=== PATIENT | female | born 1940 | race Caucasian/White ===

== ENCOUNTER → 2018-03-17 | Outpatient (CLI) | payer BC ==
[2018-03-17 13:11] LABS: ADD MAN DIFF? NO
[2018-03-17 13:17] LABS: BASO # 0.1 x10^3/uL (0.0-0.2); BASO % 1 % (0-3); EOS # 0.2 x10^3/uL (0.0-0.7); EOS % 3 % (0-3); HEMATOCRIT 35.3 % (36.0-47.0); HEMOGLOBIN 11.7 g/dL (12.0-15.5); LYMPH # 2.8 x10^3/uL (1.0-4.8); LYMPH % 31 % (24-48); MEAN CORPUSCULAR HEMOGLOBIN 30 pg (25-35); MEAN CORPUSCULAR HGB CONC 33 g/dL (31-37); MEAN CORPUSCULAR VOLUME 91 fL (79-100); MONO # 0.8 x10^3/uL (0.0-1.1); MONO % 9 % (0-9); NEUT # 5.2 x10^3uL (1.8-7.7); NEUT % 57 % (31-73); PLATELET COUNT 326 x10^3/uL (140-400); RED BLOOD COUNT 3.87 x10^6/uL (3.50-5.40); RED CELL DISTRIBUTION WIDTH 14.6 % (11.5-14.5); WHITE BLOOD COUNT 9.2 x10^3/uL (4.0-11.0)
[2018-03-17 13:44] LABS: ALBUMIN 3.7 g/dL (3.4-5.0); ANION GAP 9 (6-14); BLOOD UREA NITROGEN 23 mg/dL (7-20); CALCIUM 9.4 mg/dL (8.5-10.1); CARBON DIOXIDE 25 mmol/L (21-32); CHLORIDE 106 mmol/L (98-107); GFR 53.8; GLUCOSE 94 mg/dL (70-99); POTASSIUM 4.4 mmol/L (3.5-5.1); SODIUM 140 mmol/L (136-145)
[2018-03-17 13:46] LABS: PARTIAL THROMBOPLASTIN TIME 25 SEC (24-38); PROTHROMBIN TIME PATIENT 12.5 SEC (11.7-14.0)
[2018-03-17 14:01] LABS: BILIRUBIN,URINE NEGATIVE (NEG); CLARITY,URINE CLEAR; COLOR,URINE YELLOW; GLUCOSE,URINE NEGATIVE (NEG); NITRITE,URINE NEGATIVE (NEG); PROTEIN,URINE NEGATIVE (NEG-TRACE); UROBILINOGEN,URINE 0.2 mg/dL (0.2 mg/dL)
[2018-03-17 14:25] LABS: BACTERIA,URINE 0 /HPF (0-FEW); RBC,URINE 0 /HPF (0-2); SQUAMOUS EPITHELIAL CELL,UR OCC /LPF; WBC,URINE 0 /HPF (0-4)
[2018-03-17 14:51] LABS: SEDIMENTATION RATE 20 (0-25)
[2018-03-17 21:11] LABS: MRSA BY PCR Negative (Negative)
== END | disposition home or self-care (01) ==
LOC: SURGPAT 12:31
DX: I10 Essential (primary) hypertension (principal); R91.8 Other nonspecific abnormal finding of lung field; R94.31 Abnormal electrocardiogram [ECG] [EKG]
CPT/HCPCS: 36415; 71046; 80048; 81001; 82040; 83036; 85025; 85610; 85651; 85730; 87641; 93005

== ENCOUNTER 2018-03-29 05:51 | Inpatient (IN) | payer BC ==
[2018-03-29] MEDS: KETOROLAC 30 MG, ROPIVacaine 0.5% PF 60 ML, EPINEPHrine 0.5 MG in IV NORMAL SALINE 100M... INT ART (06:00)
[2018-03-29] MEDS ORDERED: MIDAZOLAM HCL/PF 2 MG/2 ML VIAL. (06:56)
[2018-03-29] MEDS ORDERED: EPINEPHrine 1 MG/ML VIAL (06:56)
[2018-03-29] MEDS ORDERED: BUPIVACAINE 0.5% 50 ML VIAL. (06:56)
[2018-03-29] MEDS ORDERED: PROCHLORPERAZINE 10 MG/2 ML VIAL. IV (07:00)
[2018-03-29] MEDS ORDERED: fentaNYL PF VIAL 100 MCG/2 ML VIAL IV ×2 (07:00)
[2018-03-29] MEDS ORDERED: LIDOCAINE 1% PF 2 ML VIAL. ID (07:00)
[2018-03-29] MEDS ORDERED: ONDANSETRON PF 4 MG/2 ML VIAL. IV (07:00)
[2018-03-29] MEDS ORDERED: CELECOXIB 100 MG CAPSULE. (07:08)
[2018-03-29] MEDS: ACETAMINOPHEN 500 MG TABLET PO (07:13)
[2018-03-29] MEDS: IV RINGERS,LACTATED 1000ML 1,000 ML IV (07:20)
[2018-03-29] MEDS ORDERED: FAMOTIDINE 20 MG/2 ML VIAL (07:21)
[2018-03-29] MEDS ORDERED: DEXAMETHASONE SOD PHOS 20 MG/5 ML VIAL. (07:21)
[2018-03-29] MEDS ORDERED: LIDOCAINE 2% PF Vial for OR 5 ML VIAL. (07:21)
[2018-03-29] MEDS ORDERED: ROCURONIUM 50 MG/5 ML VIAL. (07:21)
[2018-03-29] MEDS: CELECOXIB 100 MG CAPSULE. PO (07:21)
[2018-03-29] MEDS ORDERED: PROPOFOL 20 ML IV (07:21)
[2018-03-29] MEDS ORDERED: ONDANSETRON PF 4 MG/2 ML VIAL. (07:21)
[2018-03-29] MEDS ORDERED: fentaNYL PF VIAL 100 MCG/2 ML VIAL (07:22)
[2018-03-29 07:29] LABS: POC GLUCOSE 103 mg/dL (70-99)
[2018-03-29] MEDS: TRANEXAMIC ACID 1,000 MG in IV NS 50ML -- 1ST BAG INJ (07:50)
[2018-03-29] MEDS ORDERED: PHENYLEPHRINE in 0.9% NACL PF 1 MG/10 ML SYRINGE. IV (07:53)
[2018-03-29] MEDS ORDERED: GLYCOPYRROLATE 1 MG/5 ML VIAL. (09:10)
[2018-03-29] MEDS: TRANEXAMIC ACID 1,000 MG in IV NS 50ML -- 2ND BAG INJ (09:10)
[2018-03-29] MEDS ORDERED: NEOSTIGMINE METHYLSULFATE 5 MG/5 ML SYRINGE. (09:10)
[2018-03-29] MEDS ORDERED: DESFLURANE > 120 MINUTES IH (09:14)
[2018-03-29 10:01] LABS: POC GLUCOSE 122 mg/dL (70-99)
[2018-03-29] MEDS ORDERED: DEXTROSE 50% 25 GM / 50ML DISP.SYRIN. IV (10:30)
[2018-03-29] MEDS ORDERED: ACETAMINOPHEN 325 MG TABLET. PO (10:30)
[2018-03-29] MEDS ORDERED: CALCIUM CARBONATE 500 MG TAB.CHEW PO (10:30)
[2018-03-29] MEDS ORDERED: 0.9 % SODIUM CHLORIDE 10 ML DISP.SYRIN. IV (10:30)
[2018-03-29] MEDS ORDERED: traMADol 50 MG TABLET PO ×2 (10:30)
[2018-03-29] MEDS ORDERED: oxyCODONE/APAP 5/325 1 TAB TABLET PO (10:30)
[2018-03-29] MEDS ORDERED: ZOLPIDEM 5 MG TABLET. PO (10:30)
[2018-03-29] MEDS ORDERED: HYDROcodone/APAP 10/325 1 TAB TABLET PO (10:30)
[2018-03-29] MEDS ORDERED: oxyCODONE/APAP 7.5/325 1 TAB TABLET PO (10:30)
[2018-03-29] MEDS ORDERED: PROCHLORPERAZINE 5 MG TABLET. PO (10:30)
[2018-03-29] MEDS ORDERED: ceFAZolin SODIUM 1 GM in IV DEXTROSE 5% 50 ML IV (10:30)
[2018-03-29] MEDS: ceFAZolin SODIUM IV Push 1 GM VIAL. IVP ×2 (13:15→19:41)
[2018-03-29 16:51] LABS: POC GLUCOSE 119 mg/dL (70-99)
[2018-03-29] MEDS: FERROUS SULFATE 325 MG TABLET. PO (17:03)
[2018-03-29] MEDS: metFORMIN XR 500 MG TAB.ER.24H PO (17:03)
[2018-03-29] MEDS: CELECOXIB 200 MG CAPSULE. PO (20:27)
[2018-03-29] MEDS: ATORVASTATIN CALCIUM 10 MG TABLET. PO (20:27)
[2018-03-29] MEDS: HYDROcodone/APAP 7.5/325MG 1 TAB TABLET PO (20:29)
[2018-03-29 21:51] LABS: POC GLUCOSE 135 mg/dL (70-99)
[2018-03-30] MEDS: ceFAZolin SODIUM IV Push 1 GM VIAL. IVP (01:49)
[2018-03-30] MEDS: HYDROcodone/APAP 7.5/325MG 1 TAB TABLET PO ×2 (03:13→08:17)
[2018-03-30] MEDS ORDERED: MAGNESIUM HYDROXIDE 2,400 MG/30 ML ORAL.SUSP. PO (06:00)
[2018-03-30] MEDS: PANTOPRAZOLE 40 MG TABLET.DR. PO (06:59)
[2018-03-30] MEDS: LEVOTHYROXINE 100 MCG TABLET PO (06:59)
[2018-03-30 07:31] LABS: POC GLUCOSE 130 mg/dL (70-99)
[2018-03-30] MEDS: metFORMIN XR 500 MG TAB.ER.24H PO (08:16)
[2018-03-30] MEDS: MULTIVITAMIN with MINERAL TABLET. PO (08:16)
[2018-03-30] MEDS: CALCIUM CARB/VIT D3 500/200 TABLET. PO (08:16)
[2018-03-30] MEDS: SENNOSIDES/DOCUSATE 8.6/50MG TABLET. PO (08:16)
[2018-03-30] MEDS: CELECOXIB 200 MG CAPSULE. PO (08:16)
[2018-03-30] MEDS: ASPIRIN ENTERIC COATED 81 MG TABLET.DR. PO (08:16)
[2018-03-30] MEDS: FERROUS SULFATE 325 MG TABLET. PO (08:16)
[2018-03-30] MEDS: hydroCHLOROthiazide 25 MG TABLET PO (09:00)
[2018-03-30] MEDS: METOPROLOL TART IMMED RELEASE 50 MG TABLET. PO (09:00)
[2018-03-30] MEDS: IV DEXTROSE 5 %-0.45 % NACL 1,000 ML IV ×2 (10:54→10:55)
[2018-03-30 11:15] LABS: POC GLUCOSE 130 mg/dL (70-99)
[2018-03-30] MEDS ORDERED: BISACODYL 10 MG SUPP.RECT. PR (16:00)
== END 2018-03-30 12:25 | disposition home or self-care (01) | DRG 483 ==
LOC: OPSVCIP 05:51 → 4 SOUTHEST 11:30
PROVIDERS: Orthopaedic Surgery
PROC: 0RRJ00Z Replacement of Right Shoulder Joint with Reverse Ball and Socket Synthetic Substitute, Open Approach (ICD-10-PCS; principal; 2018-03-29 07:30)
DX: M12.811 Other specific arthropathies, not elsewhere classified, right shoulder (principal)
CPT/HCPCS: 36415; 82962; 86850; 86900; 86901; 88304; 88311; 97110-GP; 97116-GP; 97161-GP; 97166-GO; 97535-GO; A7015; C1713; J0171; J0690; J1100; J1885; J2001; J2250; J2370; J2405; J2704; J2710; J2795; J3010; J3490; J7030; J7120; S0028

== ENCOUNTER → 2019-06-19 | Outpatient (CLI) | payer BC ==
[2018-03-30 11:07] VITALS: BP 109/54
[~2019-06-19] MED LIST: ASCO100T4 PO; ASPI81TA50 PO; CALCIUM VIT D; CELE200C PO; CRAN200C2 PO; CYAN-25 PO; FERR325T14 PO; HYDR-2145 PO; HYDR-2765 PO; IOHEXOL 180 MG/ML 10 ML VIAL. ONE; LEVO100T5 PO; LEVO88TA4 PO; LOVA40TA2 PO; METF500T11 PO; METO50TA6 PO; MULT-55 PO; MULT-650 PO; OMEP20CA10 PO; OMEP40CA5 PO; RANI150C PO; TRAM50TA PO; methylPREDNISolone ACETATE 40 MG/ML VIAL. ONE; methylPREDNISolone ACETATE 80 MG/ML VIAL. ONE; tylenol pm; vitamin b 12
--- NOTE | 2019-06-19 23:00 | PAIN ---
DATE OF SERVICE: 06/19/2019 PROGRESS NOTE FOR PAIN CLINIC DIAGNOSES: Lumbar radiculopathy with lumbar spinal stenosis, spondylosis and post-lumbar laminectomy syndrome. HISTORY OF PRESENT ILLNESS: The patient is a 78-year-old female who returns for followup, last seen in 2014. The patient had a caudal epidural steroid injection. She did fairly well with these for a limited period of time. The patient reports that the pain has returned and she reports she is about 2 years past due to getting some treatment for it. She has some significant pain in the low back, especially in the right lower extremity pain, but in the bilateral legs and posterior gluteus, posterior thighs, posterior calf radiating, worse with walking, standing, change in positions, even standing doing dishes in her kitchen becoming uncomfortable. She is putting all of her weight on her left leg to get the weight off the right side. It is also awaking her from sleep about 3-4 times a night, does not affect her bowel or bladder control, but does affect her ability to walk significantly. She is not using any assistive devices, however. The patient has had significant history of both anterior and posterior lumbar fusions with instrumentation. She has had physical therapy as well as previous injections, which did well, but only for a limited period of time. The patient reports the pain as constant, sharp, stabbing, throbbing, shooting, radiating in the lower extremities, aching as well. The patient reports it is essentially there 24 hours a day at all times. The patient reports no loss of motor function, but significant pain and fatigability in the lower extremities, especially on the right side. PAST MEDICAL HISTORY: Significant for hypertension; type 2 diabetes; hypothyroidism, dizziness, arthritis, osteoporosis. PREVIOUS SURGERY: Include right total knee replacement, left total knee replacement, lumbar surgery in 2007, 2008 and 2009, cataract extractions, right shoulder repair. CURRENT MEDICATIONS: The patient's medication list was updated as well as current review of systems. PHYSICAL EXAMINATION: VITAL SIGNS: The patient's blood pressure 155/88, pulse 79, respirations 18, temperature 98.9 degrees Fahrenheit, height is 5 feet, weight is 164 pounds. GENERAL: The patient is awake, alert, oriented, appropriate, very pleasant demeanor. HEENT: Shows normocephalic, atraumatic. Extraocular movements are intact and symmetrical. Oral cavity: Mucous membranes moist and pink. Dentition is intact. NECK: Shows anterior throat supple without palpable lymphadenopathy noted. Swallow reflex symmetrical. CHEST: Shows normal on inspection. Breath sounds are clear to auscultation bilaterally. HEART: Shows S1, S2 clear. No murmurs auscultated. ABDOMEN: Soft, nontender, nondistended. No palpable organomegaly is noted. No rebound or guarding demonstrated. BACK: Shows spine grossly in the midline. Well-healed surgical scarring noted in the lumbar distribution with some flattening of the lumbar lordotic curvature. Some minor increase in thoracic kyphotic curvature. EXTREMITIES: The patient's lower extremities show deep tendon reflexes at 1+ in the patellar and tendo calcaneus tendons are equal. Motor exam is strong with 5/5 dorsiflexion and extension bilaterally and symmetrical. Peripheral pulses are 1+ posterior tibia. No peripheral edema is noted bilaterally. Options were discussed with the patient. The patient's old chart was reviewed as her current medication regimen updated. Current review of systems updated today as well. We will proceed with a caudal approach epidural steroid injection today, the first in this series. Risks were again discussed including, but not limited to bleeding, infection, possibility of epidural hematoma, subsequent neurologic compromise, dural puncture, headaches, spinal cord and/or nerve damage, side effects of steroid medication and poor results regarding pain control. The patient understands and wished to proceed. The patient will return to the clinic in approximately 2 weeks for followup. She was counseled on return appointment, activity level and side effects to be aware of. DIAGNOSES: Lumbar radiculopathy with lumbar spondylosis, lumbar post-laminectomy syndrome. PROCEDURE: Caudal approach epidural steroid injection using C-arm fluoroscopic guidance under sterile prep and drape using local anesthetic. MEDICATION INJECTED: Total of 120 mg Depo-Medrol plus 10 mL of preservative-free normal saline and 2 mL of contrast. CONDITION AT DISCHARGE: Stable. The patient tolerated the procedure well, had no complications. ESPERANZA LANDRY MD DR: MONICA/david JOB#: [id number] / [id number]
== END ==
LOC: PNCL 10:06
PROVIDERS: ATTEND Anesthesiology
DX: M47.26 Other spondylosis with radiculopathy, lumbar region (principal); M48.061 Spinal stenosis, lumbar region without neurogenic claudication; M96.1 Postlaminectomy syndrome, not elsewhere classified; M54.5 Low back pain
CPT/HCPCS: 62323; J1030; J1040; Q9965

== ENCOUNTER → 2019-07-03 | Outpatient (CLI) | payer BC ==
[2018-03-30 11:07] VITALS: BP 109/54
[~2019-07-03] MED LIST changes: -IOHEXOL 180 MG/ML 10 ML VIAL. ONE; -methylPREDNISolone ACETATE 40 MG/ML VIAL. ONE; -methylPREDNISolone ACETATE 80 MG/ML VIAL. ONE
--- NOTE | 2019-07-03 10:51 | PAIN ---
DATE OF SERVICE: 07/03/2019 PROGRESS NOTE FOR PAIN CLINIC DIAGNOSES: Lumbar radiculopathy with lumbar spondylosis, lumbar post-laminectomy syndrome. HISTORY OF PRESENT ILLNESS: The patient is a 78-year-old female who returns for followup status post caudal epidural steroid injection x 1 on 06/19. The patient reports she did very well with about 50% improvement overall, but has increased her activity with greater ease and comfort, walking greater distances, doing activities around the house as well as traveling with much greater ease and comfort, is very pleased with her progress. The patient reports still some pain in the shoulders, which she is getting some treatment with her orthopedic surgeon. Rates her pain as 6 on a scale of 10 at its worst over the past week, 5 on average and 3 at its least and is a 3 today. The patient reports it is aching sensation in the legs and not painful as it was. We had discussed a spinal cord stimulator trial with the patient and she would like to hold off on this after learning more about it and with the response she had after her injection. She is doing quite well and would like to maintain this for now. The patient reports no new motor or sensory deficits. Sleeping well at night, generally does not awaken her from sleep, but can occasionally, but not every night. The patient reports no new motor or sensory deficits, no new bowel or bladder incontinence or other complaints. PHYSICAL EXAMINATION: VITAL SIGNS: The patient's blood pressure 142/99, pulse 98, respirations 18, temperature 98.6, height is 5 feet 1 inch, weight is 165 pounds. GENERAL: The patient is awake, alert, oriented, appropriate, very pleasant demeanor. HEENT: Head shows normocephalic, atraumatic. Extraocular movements are intact and symmetrical. Oral cavity: Mucous membranes moist and pink. Dentition is intact. NECK: Shows anterior throat supple without palpable lymphadenopathy noted. Swallow reflex symmetrical. CHEST: Shows normal on inspection. Breath sounds clear to auscultation bilaterally. HEART: Shows S1, S2 clear. No murmurs auscultated. ABDOMEN: Soft, nontender, nondistended. No palpable organomegaly is noted. No rebound or guarding demonstrated. BACK: Shows spine grossly in the midline. Normal appearing thoracic kyphosis and lumbar lordotic curvature slightly flattened. Lumbar paraspinous muscle shows symmetrical on inspection with a well-healed surgical scarring. With palpation shows some moderate tenderness diffusely bilaterally going diffusely without significant radiation. EXTREMITIES: The patient's lower extremities show deep tendon reflexes 1+ in the patellar and tendo calcaneus tendons are equal. Motor exam is strong with 5/5 dorsiflexion, extension, quadriceps and hamstring flexion and symmetrical. Peripheral pulses are 1+ posterior tibia. No peripheral edema is noted bilaterally. Options were discussed with the patient. The patient's old chart was reviewed as her current medication regimen updated. Current review of systems updated today as well. We will hold on any further injections at this time as the patient is quite a bit better and would like to wait and we will wait on spinal cord stimulator trial as well. The patient will follow up in approximately 2 months by her choice or sooner as necessary. ESPERANZA LANDRY MD DR: MONICA/david JOB#: [id number] / [id number]
== END | disposition home or self-care (01) ==
LOC: PNCL 08:49
PROVIDERS: ATTEND Anesthesiology
DX: M47.26 Other spondylosis with radiculopathy, lumbar region (principal); M96.1 Postlaminectomy syndrome, not elsewhere classified
CPT/HCPCS: G0463

== ENCOUNTER → 2019-08-28 | Outpatient (CLI) | payer BC ==
[2018-03-30 11:07] VITALS: BP 109/54
[~2019-08-28] MED LIST changes: +IOHEXOL 180 MG/ML 10 ML VIAL. ONE; +OMEP40CA45 PO; -OMEP40CA5 PO; +TOLT4CAP PO; +methylPREDNISolone ACETATE 40 MG/ML VIAL. ONE; +methylPREDNISolone ACETATE 80 MG/ML VIAL. ONE
--- NOTE | 2019-08-28 09:50 | PAIN ---
DATE OF SERVICE: 08/28/2019 PROGRESS NOTE FOR PAIN CLINIC DIAGNOSES: Lumbar radiculopathy with lumbar spondylosis and lumbar post laminectomy syndrome. HISTORY OF PRESENT ILLNESS: The patient is a 79-year-old female who returns for followup status post caudal epidural steroid injections, last seen 08/02/2019. The patient did well after last injection about 80% improvement initially. The pain is returning now. She is walking quite a bit on vacation over the past week or two with increased pain in the low back, right lower extremity, posterior gluteus, posterior thigh, posterior calf and the right flank as well. The patient reports it is a 10 on a scale of 10 at its worst over the past week, 7 on average, 6 at its least and is a 6 today. The patient reports it is aching, sharp, shooting, radiating, becoming severe at times with walking, standing, better with sitting or lying down, generally does not awaken her from sleep, but has over the past week or so about every 6 hours. The patient reports no new motor or sensory deficits, no new bowel or bladder incontinence or other complaints. PHYSICAL EXAMINATION: VITAL SIGNS: The patient's blood pressure 139/74, pulse 86, respirations 18, temperature 98.1 degrees Fahrenheit, height is 5 feet, weight is 167 pounds. GENERAL: The patient is awake, alert, oriented, appropriate, very pleasant demeanor. HEENT: Head shows normocephalic, atraumatic. Extraocular movements are intact and symmetrical. Oral cavity: Mucous membranes moist and pink. Dentition is intact. NECK: Shows anterior throat supple without palpable lymphadenopathy noted. CHEST: Shows normal on inspection. Breath sounds are clear to auscultation bilaterally. HEART: Shows S1, S2 clear. ABDOMEN: Obese, but soft, nontender, nondistended. BACK: Shows spine grossly in the midline, slight exaggerated thoracic kyphosis and flattening of lumbar lordotic curvature with well-healed surgical scarring noted in the lumbar distribution. Lumbar paraspinous muscle shows symmetrical on inspection; with palpation shows some moderate tenderness diffusely bilaterally, but only diffusely without radiation. The patient has good rotational motion of lumbar spine, both laterally and extension and flexion without difficulty. EXTREMITIES: Lower extremities show deep tendon reflexes at 1+ in the patellar and tendo calcaneus tendons are equal. Motor exam is strong with 5/5 dorsiflexion, extension, quadriceps and hamstring flexion symmetrical. Peripheral pulses are 1+ posterior tibia. No peripheral edema is noted. Options were discussed with the patient. The patient's old chart was reviewed as her current medication regimen updated. Current review of systems updated today as well. We will proceed with a caudal approach epidural steroid injection as the first in this series today with fluoroscopic guidance. Risks were again discussed including, but not limited to bleeding, infection, possibility of epidural hematoma, subsequent neurological compromise, dural puncture, headaches, spinal cord and/or nerve damage, side effects of steroid medication and poor results regarding pain control. The patient understands and wished to proceed. The patient will return to clinic in approximately 2 weeks for followup. She was counseled as to return appointment, activity level and side effects to be aware of. DIAGNOSES: Lumbar radiculopathy with lumbar spondylosis, post-lumbar laminectomy syndrome. PROCEDURE: Caudal approach epidural steroid injection using C-arm fluoroscopic guidance under sterile prep and drape using local anesthetic. MEDICATION INJECTED: Total of 120 mg Depo-Medrol plus 10 mL of preservative-free normal saline and 2 mL of contrast. CONDITION AT DISCHARGE: Stable. The patient tolerated procedure well, had no complications. ESPERANZA LANDRY MD DR: MONICA/david JOB#: [id number] / [id number]
== END ==
LOC: PNCL 07:19
PROVIDERS: ATTEND Anesthesiology
DX: M54.16 Radiculopathy, lumbar region (principal); M47.816 Spondylosis without myelopathy or radiculopathy, lumbar region; M96.1 Postlaminectomy syndrome, not elsewhere classified
CPT/HCPCS: 62323; J1030; J1040; Q9965

== ENCOUNTER → 2019-09-25 | Outpatient (CLI) | payer BC ==
[2018-03-30 11:07] VITALS: BP 109/54
[~2019-09-25] MED LIST changes: +OMEP-229 PO; -OMEP20CA10 PO
--- NOTE | 2019-09-25 09:59 | PAIN ---
DATE OF SERVICE: 09/25/2019 PROGRESS NOTE FOR PAIN CLINIC DIAGNOSES: Lumbar radiculopathy with lumbar spondylosis and lumbar post-laminectomy syndrome. HISTORY OF PRESENT ILLNESS: The patient is a 79-year-old female who returns for followup status post caudal epidural steroid injections x 2, most recently 08/28/2019. The patient did well with about 65% improvement for several weeks following the injection. The pain is returning now in the low back, right lower extremity, posterior gluteus, posterior thigh and posterior calf. The patient reports it is cramping, stabbing, aching and shooting in quality, radiating, becoming severe, unbearable with weightbearing, walking, standing, better with sitting or lying down, does awaken her from sleep; however, recently about every 5-6 hours over the past week or so. The patient reports no new motor or sensory deficits, no new bowel or bladder incontinence or other complaints. PHYSICAL EXAMINATION: VITAL SIGNS: The patient's blood pressure is 156/79, pulse 101, respirations 18, temperature 98.4 degrees Fahrenheit, height is 5 feet, weight is 164 pounds. GENERAL: The patient is awake, alert, oriented, appropriate, very pleasant demeanor. HEENT: Shows normocephalic, atraumatic. Extraocular movements are intact and symmetrical. Oral cavity: Mucous membranes moist and pink. Dentition is intact. NECK: Shows anterior throat supple without palpable lymphadenopathy noted. Swallow reflex symmetrical. CHEST: Shows normal on inspection. Breath sounds clear to auscultation bilaterally. HEART: Shows S1, S2 clear. No murmurs auscultated. ABDOMEN: Soft, nontender, nondistended. BACK: Shows spine grossly in the midline. Slight exaggeration of thoracic kyphosis and flattening of lumbar lordotic curvature with well-healed surgical scarring noted in the lumbar distribution. Lumbar paraspinous muscle shows symmetrical on inspection, on palpation shows some moderate tenderness without significant radiation. The patient shows good rotational motion of lumbar spine, both laterally as well as extension and flexion without significant increase in pain. EXTREMITIES: The patient's lower extremities show deep tendon reflexes 1+ in the patellar and tendo-calcaneus tendons. Motor exam is approximately 5/5 with dorsiflexion, extension, quadriceps and hamstring flexion, symmetrical and strong. Peripheral pulses are 1+ posterior tibia. No peripheral edema is noted bilaterally. Options were discussed with the patient. The patient's old chart was reviewed as her current medication regimen updated. Current review of systems updated today as well. We will proceed with a third in the series of caudal approach epidural steroid injection today with fluoroscopic guidance. Risks were again discussed including, but not limited to bleeding, infection, possibility of epidural hematoma, subsequent neurological compromise, dural puncture, headaches, spinal cord and/or nerve damage, side effects of steroid medication and poor results regarding pain control. The patient understands and wished to proceed. The patient will return to clinic in approximately 2 weeks for followup, was counseled on return appointment, activity level and side effects to be aware of. DIAGNOSES: Lumbar radiculopathy with lumbar spondylosis and lumbar post-laminectomy syndrome. PROCEDURE: Lumbar epidural steroid injection, caudal approach using C-arm fluoroscopic guidance under sterile prep and drape using local anesthetic. MEDICATION INJECTED: A total of 120 mg Depo-Medrol plus 10 mL of preservative-free normal saline and 2 mL of contrast. CONDITION AT DISCHARGE: Stable. The patient tolerated the procedure well, had no complications. ESPERANZA LANDRY MD DR: MONICA/david JOB#: [id number] / [id number]
== END ==
LOC: PNCL 07:58
PROVIDERS: ATTEND Anesthesiology
DX: M96.1 Postlaminectomy syndrome, not elsewhere classified (principal); M54.16 Radiculopathy, lumbar region; M47.816 Spondylosis without myelopathy or radiculopathy, lumbar region
CPT/HCPCS: 62323; J1030; J1040; Q9965

== ENCOUNTER → 2019-12-25 | Outpatient (CLI) | payer BC ==
[2018-03-30 11:07] VITALS: BP 109/54
[~2019-12-25] MED LIST changes: -OMEP-229 PO; +OMEP20CA16 PO
--- NOTE | 2019-12-25 09:09 | PAIN ---
DATE OF SERVICE: 12/25/2019 PROGRESS NOTE FOR PAIN CLINIC DIAGNOSES: Lumbar radiculopathy with lumbar spondylosis and lumbar post-laminectomy syndrome. HISTORY OF PRESENT ILLNESS: The patient is a 79-year-old female who returns for followup status post caudal epidural steroid injections, most recently 08/28/2019. Patient did very well with about 65% improvement. The patient reports pain is returning now in the low back, right lower extremity, posterior gluteus, posterior thigh, posterior calf, worse with walking, standing, changing positions, better with sitting or lying down. Initially she reports, she was walking greater distances with greater ease and comfort, doing household activities with much greater ease and comfort, now it is beginning to bother with all these activities as well as beginning to wake her from sleep about every 2 hours. The patient reports pain is a 10 on a scale of 10 at its worst over the past week, 7 on average, 5 at its least, and is a 7 today. The patient reports it is aching, sharp, shooting, stabbing, becoming unbearable at times and radiating in the right lower extremity. The patient reports no new motor or sensory deficits. No new bowel or bladder incontinence or other complaints. PHYSICAL EXAMINATION: VITAL SIGNS: The patient's blood pressure 164/84, pulse 83, respirations 16, temperature 98.8 degrees Fahrenheit, and weight is 169 pounds. GENERAL: The patient is awake, alert, oriented, appropriate, very pleasant demeanor. HEENT: Normocephalic, atraumatic. Extraocular movements are intact and symmetrical. Oral cavity: Mucous membranes moist and pink. Dentition is intact. NECK: Shows anterior throat supple without palpable lymphadenopathy noted. Swallow reflex symmetrical. CHEST: Shows normal on inspection. Breath sounds are clear bilaterally. HEART: Shows S1, S2 clear. No murmurs auscultated. ABDOMEN: Soft, nontender, and nondistended. No palpable organomegaly is noted. There is no rebound or guarding demonstrated. BACK: Shows spine grossly in the midline. Normal appearing thoracic kyphosis and lumbar lordotic curvature. Lumbar paraspinous muscle shows symmetrical on inspection, on palpation some moderate tenderness diffusely bilaterally, going diffusely without significant radiation demonstrated. EXTREMITIES: The patient's lower extremities show deep tendon reflexes at 1+ in the patellar and tendocalcaneus tendons. Motor exam is strong with 5/5 dorsiflexion. Extension, quadriceps, and hamstring flexion symmetrical. Peripheral pulses are 1+ posterior tibia. No peripheral edema is noted bilaterally. Options were discussed with the patient. The patient's old chart was reviewed as her current medication regimen updated. Current review of systems updated today as well. We will proceed with a caudal approach epidural steroid injection, the first in this series with fluoroscopic guidance. Risks were again discussed including, but not limited to bleeding, infection, possibility of epidural hematoma, subsequent neurological compromise, dural puncture, headaches, spinal cord and/or nerve damage, side effects of steroid medication and poor results regarding pain control. The patient understands and wished to proceed. The patient will return to clinic in approximately 2 weeks for followup. She was counseled as to return appointment, activity level and side effects to be aware of. DIAGNOSIS: Lumbar radiculopathy with lumbar spondylosis, lumbar post-laminectomy syndrome. PROCEDURE: Lumbar epidural steroid injection, caudal approach using C-arm fluoroscopic guidance under sterile prep and drape using local anesthetic. MEDICATION INJECTED: A total of 120 mg Depo-Medrol plus 10 mL of preservative-free normal saline and 2 mL of contrast. CONDITION AT DISCHARGE: Stable. The patient tolerated procedure well, had no complications. ESPERANZA LANDRY MD DR: MONICA/david JOB#: [id number] / [id number]
== END ==
LOC: PNCL 07:46
PROVIDERS: ATTEND Anesthesiology
DX: M54.16 Radiculopathy, lumbar region (principal); M47.816 Spondylosis without myelopathy or radiculopathy, lumbar region; M96.1 Postlaminectomy syndrome, not elsewhere classified
CPT/HCPCS: 62323; J1030; J1040; Q9965

== ENCOUNTER → 2021-10-01 | Outpatient (CLI) | payer BC ==
[2018-03-30 11:07] VITALS: BP 109/54
[~2021-10-01] MED LIST changes: -IOHEXOL 180 MG/ML 10 ML VIAL. ONE; +METF-658 PO; -METF500T11 PO; -MULT-55 PO; +MULT-684 PO; -OMEP40CA45 PO; +OMEP40CA7 PO; -methylPREDNISolone ACETATE 40 MG/ML VIAL. ONE; -methylPREDNISolone ACETATE 80 MG/ML VIAL. ONE
--- NOTE | 2021-10-01 11:02 | KCIC ---
EXAM: Pelvic sonogram; abdomen sonogram. HISTORY: Pain. TECHNIQUE: Sonographic imaging of the abdomen and pelvis was performed. COMPARISON: None. FINDINGS: The uterus measures 7.0 x 4.1 x 2.3 cm. The endometrial stripe measures 3.4 mm thickness. T he ovaries are normal in size for the postmenopausal status of patient. There is normal ovarian blood flow. There is no adnexal cyst or mass. There is no pelvic free fluid. There is a 1.9 cm suspected s mall fibroid within the right superior uterine fundus. The liver is normal in size. There is hepatic steatosis. No focal hepatic lesion is seen. The gallbla dder is unremarkable. The common bile duct is normal in caliber. There is mild left renal atrophy. Th ere is a 1.6 cm simple right renal cyst. Follow-up is not routinely performed for simple cysts. The s pleen is normal in size. There is a 1.2 cm solid nodule adjacent to the splenic hilum, likely due to a splenule. The pancreas, aorta and inferior vena cava are partially obscured due to bowel gas. IMPRESSION: 1. 1.9 cm suspected uterine fibroid. 2. Mild hepatic steatosis. 3. 1.6 cm simple right renal cyst. 4. Partially obscured midline abdominal structures due to bowel gas. 5. Mild left renal atrophy. 6. Unremarkable ovaries and endometrial stripe. Electronically signed by: Debora Wood MD (10/01/2021 10:59 AM) [id number]
== END ==
LOC: KCIC US 09:04
PROVIDERS: ATTEND Family Medicine
DX: K76.0 Fatty (change of) liver, not elsewhere classified (principal); N28.1 Cyst of kidney, acquired; N26.1 Atrophy of kidney (terminal); R74.01 Elevation of levels of liver transaminase levels
CPT/HCPCS: 76700; 76856

== ENCOUNTER → 2021-10-06 | Outpatient (CLI) | payer BC ==
[2018-03-30 11:07] VITALS: BP 109/54
[~2021-10-06] MED LIST changes: +IOHEXOL 240 MG/ML 50ML VIAL. PO ONE; +IOHEXOL 300 MG/ML 100ML VIAL. IV ONE
--- NOTE | 2021-10-06 10:50 | KCIC ---
Examination: CT of the abdomen pelvis with oral and IV contrast HISTORY: History of lower abdominal pain, cramping COMPARISON: None TECHNIQUE: Axial CT images of the abdomen pelvis were performed without IV contrast. Coronal and sagi ttal reformats are performed. Exposure: One or more of the following individualized dose reduction techniques were utilized for thi s examination: 1. Automated exposure control 2. Adjustment of the mA and/or kV according to patient size 3. Use of iterative reconstruction technique FINDINGS: The bibasilar lungs are clear. No evidence of free air identified in the abdomen The liver, spleen, adrenals grossly appears unremarkable. The gallbladder is mildly distended. Large hiatal hernia. The stomach demonstrates visualized pancreas grossly appears unremarkable. Small bowel is nondilated. Feces and gas noted in the colon. Few sigmoid colon diverticulosis. Urinary bladder is mildly disten ded Bilateral kidneys enhance symmetrically. There is a 1 cm density identified in the cortex of the righ t kidney in the midportion. Severe degenerative changes lumbar spine. Lumbosacral posterior fusion of bilateral pedicle screws id entified. Tiny bone islands identified in the cecum in the left iliac bone with the largest measuring 6 mm. IMPRESSION: 1. No acute intra-abdominal findings. 2. Large hiatal hernia. 3. 1 cm density identified in the cortex of the right kidney in the midportion could be a cyst or so lid lesion/neoplasm. Follow-up nonemergent ultrasound kidneys or MRI can be considered. 4. Few sigmoid colon diverticulosis. Electronically signed by: Jericho Hanson MD (10/06/2021 10:47 AM) [id number]
== END ==
LOC: KCIC CT 09:01
PROVIDERS: ATTEND Family Medicine
DX: K44.9 Diaphragmatic hernia without obstruction or gangrene (principal); N28.89 Other specified disorders of kidney and ureter; K57.30 Diverticulosis of large intestine without perforation or abscess without bleeding; N32.89 Other specified disorders of bladder; K82.8 Other specified diseases of gallbladder; M47.816 Spondylosis without myelopathy or radiculopathy, lumbar region; Z98.1 Arthrodesis status
CPT/HCPCS: 74177; Q9966; Q9967